=== PATIENT | male | born 1990 ===

== ENCOUNTER 2016-08-27 13:27 | Emergency (ER) | payer MEDICAID ==
--- NOTE | 2016-08-27 14:14 | C.PDOC ---
History Of Present Illness 26 y/o male presents to ED with complaints of right 5th finger. Patient reports jamming right 5th finger while playing basketball 3 days ago. Patient denies numbness, weakness or any other complaints at this time. Time Seen by Provider: 08/27/16 13:36 Chief Complaint (Nursing): Upper Extremity Problem/Injury History Per: Patient History/Exam Limitations: no limitations Onset/Duration Of Symptoms: Days Current Symptoms Are (Timing): Still Present Quality: "Pain" Past Medical History Reviewed: Historical Data, Nursing Documentation, Vital Signs Vital Signs: Last Vital Signs Temp 97.7 F 08/27/16 14:42 Pulse 68 08/27/16 14:42 Resp 18 08/27/16 14:42 BP 111/73 08/27/16 14:42 Pulse Ox 98 08/27/16 14:42 Family History: States: No Known Family Hx - Social History Hx Alcohol Use: No Hx Substance Use: No - Immunization History Hx Tetanus Toxoid Vaccination: No Hx Influenza Vaccination: No Hx Pneumococcal Vaccination: No Review Of Systems Except As Marked, All Systems Reviewed And Found Negative. Musculoskeletal: Positive for: Hand Pain. Negative for: Arm Pain Skin: Negative for: Rash Neurological: Negative for: Weakness, Numbness Physical Exam - Physical Exam Appears: Non-toxic, No Acute Distress Skin: Normal Color, Warm Head: Atraumatic, Normacephalic Extremity: Tenderness (To right DIP joint), Capillary Refill (<2 seconds), Deformity (To right 5th distal finger) Pulses: Left Radial: Normal, Right Radial: Normal Neurological/Psych: Oriented x3, Normal Motor, Normal Sensation ED Course And Treatment O2 Sat by Pulse Oximetry: 97 (on RA) Pulse Ox Interpretation: Normal - Other Rad right hand X-Ray: Interpreted by Me, Viewed By Me, Read By Radiologist Interpretation: + Mallet of right 5th finger on the DIP joint Orthopedic Time Performed: 14:30 Time Out: Side verified, Site verified Procedure: Splint Other:: Finger splint to the Right 5th Consent obtained: Verbal Performed by: Mid-level Provider (Rachael) Diagnosis: Other (Mallet finger) Capillary refill: Normal Distal Sensation: Normal Distal Motor Function: Normal Capillary Refill: Normal Compartment: Normal Distal Sensation: Normal Distal Motor Function: Normal Patient tolerated procedure: Well Notes:: Finger was placed in slight extension for the mallet finger Disposition - Disposition Referrals: Gwen Silva MD [Staff Provider] - Disposition: HOME/ ROUTINE Disposition Time: 14:20 Condition: GOOD Additional Instructions: Follow up with the Hand doctor within 1-2 days without fail. Return if worsened. Instructions: Isaias Chen (ED) - Clinical Impression Clinical Impression: Mallet finger - Scribe Statement The provider has reviewed the documentation as recorded by the Scribe Claudio Garcia All medical record entries made by the Deondreibrozina were at my direction and personally dictated by me. I have reviewed the chart and agree that the record accurately reflects my personal performance of the history, physical exam, medical decision making, and the department course for this patient. I have also personally directed, reviewed, and agree with the discharge instructions and disposition.
[2016-08-27 14:43] VITALS: BP 111/73; PULSE 68; RESP 18; TEMP 97.7
--- NOTE | 2016-08-27 15:51 | RAD ---
PROCEDURE: Right small finger radiographs. Fifth HISTORY: finger injury and pain COMPARISON: None. TECHNIQUE: AP radiograph of the right hand, as well as spot oblique and lateral images of small finger were obtained. FINDINGS: RIGHT SMALL FINGER: Fixed flexion deformity DIP joint consistent with positive mallet finger here. No fracture or dislocation appreciated JOINTS: Normal. SOFT TISSUES: Normal. OTHER FINDINGS: None. IMPRESSION: Fifth distal interphalangeal joint mallet finger
[2016-08-27 21:35] VITALS: O2SAT 97
== END 2016-08-27 14:43 | disposition home or self-care (01) ==
LOC: C.ER 13:27
DX: M20.011 Mallet finger of right finger(s) (principal)